=== PATIENT | male | born 1955 | race Caucasian/White ===

== ENCOUNTER 2020-02-22 16:18 | Observation (INO) | payer MEDICARE, SELFPAY ==
--- NOTE | ~2020-02-22 | XR_ITS ---
EXAMINATION: XR chest 1V portable DATE: 02/22/2020 17:33 INDICATION: Shortness of breath and posterior chest pain TECHNIQUE: frontal view of the chest was obtained. COMPARISON: None FINDINGS: The lungs are clear with no focal airspace opacities, pulmonary edema, pleural effusion or pneumothor ax. The cardiomediastinal silhouette is normal. Dual lead pacemaker seen with leads projecting over t he expected locations of the right atrium and right ventricle. Pair of stimulator leads extending cep halad into the lower thoracic spine with distal tips projecting over the central canal at the level o f T8. Partially visualized plate and screw fixation for lower cervical anterior spinal fusion. IMPRESSION: 1. No acute cardiopulmonary disease. Reviewed, dictated and finalized at location A. ECHNICIAN
--- NOTE | 2020-02-22 17:09 | ED.CHESTPAIN ---
HPI - Chest Pain General Chief Complaint: Chest Pain Stated Complaint: back pain, SOB, leg numbness Time Seen by Provider: 02/22/20 17:09 Source: patient and family Limitations: no limitations History of Present Illness HPI narrative: 64-year-old man with a history of coronary artery disease, COPD, and CHF comes to the emergency department complaining of left-sided chest pain that radiates down his left arm and to the back between his shoulder blades that started approximately 2 hours ago. The pain is improved but is not entirely resolved at present. Patient states that he had been walking outdoors and as he came in the chest pain started. States he had a similar episode a week ago which resolved after a few minutes. Episode today was accompanied by dry mouth, nausea, and lightheadedness. He denies shortness of breath, on with syncope, abdominal pain, vomiting, recent cough or cold symptoms, and fever. Patient has a history of chronic low back pain and he states his back pain has been worse the last few days and is radiating down his right leg. He denies falls or injuries. MD complaint: chest pain Pertinent past history: coronary artery disease Onset (ago): hour(s) (2) Timing of current episode: episodic Prior episodes: Yes Onset: during exertion Pain location: substernal Pain radiation: left arm and back Severity: moderate Quality: tightness and heaviness Relieving factors: rest Exacerbating factors: exertion Associated symptoms: nausea and diaphoresis Treatment prior to arrival: none Risk Factors Coronary artery disease risk factors: smoking history, hyperlipidemia and hypertension Related Data Allergies Allergy/AdvReac Type Severity Reaction Status Date / Time No Known Allergies Allergy Verified 02/22/20 18:12 Review of Systems Constitutional: Constitutional: Denies body ache(s) and Denies chills Comments: No fever Eyes: Eyes: Denies loss of vision and Denies other visual disturbances ENT: Reports dry mouth, Denies nasal congestion and Denies sore throat Cardiovascular: Cardiovascular: Reports as per HPI, Denies rapid heart rate and Denies leg edema Respiratory: Respiratory: Denies chest congestion, Denies cough, Denies hemoptysis, Denies dyspnea and Denies dyspnea on exertion Gastrointestinal: Gastrointestinal: Denies abdominal pain, Denies diarrhea, Reports nausea and Denies vomiting Genitourinary: Genitourinary: Reports dysuria and Reports urinary frequency Musculoskeletal: Musculoskeletal: Reports back pain ( chronic), Denies arthralgias and Denies joint swelling Integumentary/Breasts: Skin/Breast: Denies lesions, Denies erythema, Denies rash and Denies unusual bruising Neurologic: Denies vertigo, Denies dizziness, Denies syncope, Denies headache(s) and Denies focal weakness Psychiatric: Psychiatric: Denies anxiety and Denies depression Allergic/Immunologic: Allergic/Immunologic: Denies urticaria, Denies lip swelling and Denies throat swelling [facility] Past Medical History Medical History (Updated 02/22/20 @ 18:23 by Dwayne Gay MD) Congestive heart failure Coronary artery disease Dyslipidemia Hypertension Prostate cancer Surgical History Surgical History (Updated 02/22/20 @ 17:28 by Dwayne Gay MD) Previous back surgery S/P insertion of spinal cord stimulator Stented coronary artery Social History Social History (Updated 02/22/20 @ 17:28 by Dwayne Gay MD) Smoking status: Current every day smoker Tobacco type: cigars Alcohol intake: never Substance use: never Living arrangements: with family Gender identity (if verbalized by the patient): Male Exam Const: General: cooperative, alert, awake, Physically active and acute distress mild Nutritional Appearance: average body habitus Orientation/consciousness: patient oriented x3 Limitations: no limitations HENMT: Head: normal to inspection, normocephalic and atraumatic Ears: external ears normal, TM's
--- NOTE | 2020-02-22 17:14 | ECG_ITS ---
Measurements Intervals [place] Rate: 76 P: 74 ND: 166 QRS: -41 QRSD: 137 T: 17 QT: 377 QTc: 425 Interpretive Statements SINUS RHYTHM LEFT AXIS DEVIATION RSR' IN V1 OR V2, CONSIDER RIGHT VENTRICULAR HYPERTROPHY OR RIGHT VCD BASELINE ARTIFACT- II, III, V1 BORDERLINE ECG Electronically Signed On 02-23-2020 7:04:24 RADARMAN by Fortino Nicholas D.O.
[2020-02-22 17:15] VITALS: BP 143/93; PULSE 88; RESP 20; TEMP 36.7
[2020-02-22] MEDS: NITROGLYCERIN SL 0.4 MG TABLET SUBLINGUAL (17:25)
[2020-02-22 17:30] VITALS: BP 125/80; PULSE 86; RESP 20; O2SAT 93
[2020-02-22] MEDS: ASPIRIN 81 MG CHEWABLE TABLET 324 MG PO (17:30)
[2020-02-22 17:37] LABS: Basophils Absolute Auto 0.07 K/mm3 (0.00-0.10); Basophils Percent Auto 0.5 % (0.0-1.0); Eosinophils Absolute Auto 0.19 K/mm3 (0.02-0.50); Eosinophils Percent Auto 1.5 % (1.0-6.0); Hematocrit 46.2 % (37.0-46.0); Hemoglobin 15.4 g/dL (12.4-15.3); Immature Granulocyte Absolute 0.05 K/mm3 (0.00-0.00); Immature Granulocyte Percent A 0.4 % (0.0-0.0); Lymphocytes Absolute Auto 1.72 K/mm3 (1.10-4.50); Lymphocytes Percent Auto 13.4 % (18.0-42.0); Mean Corpuscular HGB Conc 33.3 g/dL (32.0-36.0); Mean Corpuscular Hemoglobin 30.7 pg (27.0-31.0); Mean Corpuscular Volume 92.2 fL (78.0-102.0); Mean Platelet Volume 8.9 fl (8.7-11.0); Monocytes Absolute Auto 1.09 K/mm3 (0.10-0.90); Monocytes Percent Auto 8.5 % (2.0-11.0); Neutrophils Absolute Auto 9.8 K/mm3 (1.7-7.2); Neutrophils Percent Auto 75.7 % (50.0-70.0); Platelet Count Result 277 K/mm3 (150-420); Red Blood Count 5.01 M/mm3 (4.70-6.10); Red Cell Distribution Width 12.2 % (11.6-14.4); White Blood Count 12.9 K/mm3 (4.8-10.8)
[2020-02-22] MEDS: MORPHINE SULFATE (*CRX) 2 MG/ML INJ IV PUSH (17:40)
[2020-02-22] MEDS: SODIUM CHLORIDE 0.9% IV 500 ML 999 ML IV CONT (17:45)
[2020-02-22 17:57] LABS: BNP < 5.0 pg/mL (0-100)
[2020-02-22 17:58] LABS: Alanine Aminotransferase 35 U/L (16-63); Alkaline Phosphatase 79 U/L (46-116); Anion Gap 8 mmol/L (8-16); Aspartate Amino Transferase 16 U/L (15-37); Bilirubin,Total 0.4 mg/dL (0.00-1.00); Blood Urea Nitrogen 12 mg/dL (7-18); Calcium 8.8 mg/dL (8.5-10.1); Carbon Dioxide 31 mmol/L (21-32); Chloride 101 mmol/L (98-108); D Dimer 0.19 mg/L (0.19-0.50); Estimated CRCL calculation 77 ml/min; Estimated Glomerular Filt Rate > 60; Glucose 101 mg/dL (70-99); Osmolality Calculated 289 mOsm/kg (285-295); Partial Thromboplastin Time 33.8 SEC (23.90-30.70); Potassium 4.4 mmol/L (3.5-5.1); Prothrombin Time 10.6 Seconds (9.50-12.10); Sodium 140 mmol/L (136-145); Total Protein 7.2 g/dL (6.4-8.2); Troponin I 4.5 ng/L (0.00-60.4)
[2020-02-22 18:00] VITALS: BP 81/61; PULSE 70; RESP 20; O2SAT 93
--- NOTE | 2020-02-22 18:02 | PC.NURSE ---
1725 NITRO#1 GIVEN CP 07/19 B/P 140/91 1730 NITRO #2 GIVEN CP 06/18 B/P 125/80 1735 NITRO #3 GIVEN CP 05/19 B/P 110/74 1745 B/P 90/40 NS 500 BOLUS GIVEN CP 02/18 BACK PAIN 06/18
[2020-02-22 18:45] VITALS: BP 105/69; PULSE 68; RESP 20; O2SAT 95
[2020-02-22 19:47] VITALS: BMI 25.2
[2020-02-22 20:00] VITALS: BP 117/69; PULSE 74; RESP 20; TEMP 36.9; O2SAT 96
[2020-02-22] MEDS: ATORVASTATIN 40 MG TABLET PO (20:19)
[2020-02-22] MEDS: SODIUM CHLORIDE 0.9% IV 1,000 ML 50 ML IV CONT (20:20)
[2020-02-22] MEDS: GABAPENTIN 300 MG CAPSULE PO (20:20)
[2020-02-22] MEDS: BUDESONIDE/FORMOTEROL (*SP) 160-4.5 MCG 6 GM INH 2 PUFF INHALATION (20:20)
[2020-02-22] MEDS: methocarbamoL 500 MG TABLET PO (20:20)
[2020-02-22 21:01] LABS: Troponin I 5.2 ng/L (0.00-60.4)
[2020-02-23] VITALS: BP 125/81; PULSE 76; RESP 20; TEMP 37.1; O2SAT 93
[2020-02-23 00:08] LABS: Troponin I 5.4 ng/L (0.00-60.4)
[2020-02-23 04:00] VITALS: BP 106/67; PULSE 67; RESP 18; TEMP 37; O2SAT 93
[2020-02-23 05:42] LABS: Basophils Absolute Auto 0.05 K/mm3 (0.00-0.10); Basophils Percent Auto 0.6 % (0.0-1.0); Eosinophils Absolute Auto 0.14 K/mm3 (0.02-0.50); Eosinophils Percent Auto 1.7 % (1.0-6.0); Hematocrit 42.1 % (37.0-46.0); Hemoglobin 13.7 g/dL (12.4-15.3); Immature Granulocyte Absolute 0.03 K/mm3 (0.00-0.00); Immature Granulocyte Percent A 0.4 % (0.0-0.0); Lymphocytes Absolute Auto 1.75 K/mm3 (1.10-4.50); Lymphocytes Percent Auto 20.8 % (18.0-42.0); Mean Corpuscular HGB Conc 32.5 g/dL (32.0-36.0); Mean Corpuscular Hemoglobin 30.6 pg (27.0-31.0); Mean Corpuscular Volume 94.2 fL (78.0-102.0); Mean Platelet Volume 9.1 fl (8.7-11.0); Monocytes Absolute Auto 0.75 K/mm3 (0.10-0.90); Monocytes Percent Auto 8.9 % (2.0-11.0); Neutrophils Absolute Auto 5.7 K/mm3 (1.7-7.2); Neutrophils Percent Auto 67.6 % (50.0-70.0); Platelet Count Result 244 K/mm3 (150-420); Red Blood Count 4.47 M/mm3 (4.70-6.10); Red Cell Distribution Width 12.4 % (11.6-14.4); White Blood Count 8.4 K/mm3 (4.8-10.8)
[2020-02-23 06:09] LABS: Alanine Aminotransferase 28 U/L (16-63); Albumin Level 3.3 g/dL (3.4-5.0); Alkaline Phosphatase 65 U/L (46-116); Anion Gap 7 mmol/L (8-16); Aspartate Amino Transferase 15 U/L (15-37); Bilirubin,Total 0.5 mg/dL (0.00-1.00); Blood Urea Nitrogen 9 mg/dL (7-18); Calcium 8.1 mg/dL (8.5-10.1); Carbon Dioxide 27 mmol/L (21-32); Chloride 107 mmol/L (98-108); Estimated CRCL calculation 95 ml/min; Estimated Glomerular Filt Rate > 60; Glucose 111 mg/dL (70-99); Osmolality Calculated 291 mOsm/kg (285-295); Potassium 4.1 mmol/L (3.5-5.1); Sodium 141 mmol/L (136-145); Troponin I 5.2 ng/L (0.00-60.4)
[2020-02-23 08:00] VITALS: BP 115/80; PULSE 78; RESP 20; TEMP 37.4; O2SAT 97
[2020-02-23 08:59] VITALS: PULSE 76
[2020-02-23] MEDS: BUDESONIDE/FORMOTEROL (*SP) 160-4.5 MCG 6 GM INH 2 PUFF INHALATION (08:59)
[2020-02-23] MEDS: METOPROLOL SUCCINATE EXT REL 50 MG TABCR PO (08:59)
[2020-02-23] MEDS: CLOPIDOGREL BISULFATE 75 MG TABLET PO (09:00)
[2020-02-23] MEDS: lisinopriL 20 MG TABLET PO (09:00)
[2020-02-23] MEDS: DABIGATRAN ETEXILATE 150 MG CAPSULE PO (09:00)
[2020-02-23] MEDS: THERAPEUTIC MULTIVITAMINS/MINERALS TAB (*BKC) 1 TABLET PO (09:00)
[2020-02-23] MEDS: LIDOCAINE 5% PATCH 1 PATCH TOPICAL (09:00)
[2020-02-23] MEDS: methocarbamoL 500 MG TABLET PO (09:43)
--- NOTE | 2020-02-23 10:19 | PM.SD ---
Same Day Admit/Disch: HPI History of Present Illness Chief complaint: CHEST PAIN Narrative: Emiliano Obrien is a 64 year old male that presented to our ED with complaints of chest pain. Patient has a past medical history of, congestive heart failure, CAD, dyslipidemia, hypertension, prostate cancer. According to patient yesterday he was walking in the chair with his grandson and started experiencing left chest pain that to his left shoulder and upper arm and down the back of his neck patient noted that the pain worsened that is when to our ED. He also noted that he felt lightheaded during this episode. Patient does see a relationship counselor in a pain management provider at the [facility]. Patient notes that his pain medication had recently been changed notes that when he takes buprenorphine he becomes a little lightheaded and thinks this could be the possible cause of his lightheadedness. Patient's troponin has been negative x3 EKG sinus rhythm with a heart rate of 76. Patient notes that when he took nitro in the ED his chest pain resolved. Today the patient denies SOB, CP, palpitation, extremity numbness, lightheadedness, dizziness, constipation, diarrhea, chills, or fever. Patient will discharge home with nitro and follow-up with his primary care physician and relationship counselor [facility] Past Medical History Medical History (Updated 02/22/20 @ 18:23 by Dwayne Gay MD) Congestive heart failure Coronary artery disease Dyslipidemia Hypertension Prostate cancer Surgical History Surgical History (Updated 02/22/20 @ 17:28 by Dwayne Gay MD) Previous back surgery S/P insertion of spinal cord stimulator Stented coronary artery Social History Social History (Updated 02/22/20 @ 17:28 by Dwayne Gay MD) Years smoked: 46 Smoking status: Current every day smoker Tobacco type: cigars Second hand tobacco smoke exposure: Yes Alcohol intake: never Substance use: never Living arrangements: with family Gender identity (if verbalized by the patient): Male Spiritual care concerns: No Same Day Admit/Disch: Med Pre-admit Medications Home Medications Medication Instructions Recorded Confirmed Type acetaminophen 1,000 mg PO BID PRN 02/22/20 02/22/20 History atorvastatin 40 mg PO HS 02/22/20 02/22/20 History budesonide-formoterol 2 puff INHALATION Q12H 02/22/20 02/22/20 History buprenorphine 1 patch TRANSDERMAL WEEKLY 02/22/20 02/22/20 History buprenorphine HCl 75 mcg BUCCAL Q12H 02/22/20 02/22/20 History clopidogrel 75 mg PO DAILY 02/22/20 02/22/20 History dabigatran etexilate 150 mg PO BID 02/22/20 02/22/20 History diclofenac sodium 2 g TOPICAL QID 02/22/20 02/22/20 History gabapentin 300 mg PO HS 02/22/20 02/22/20 History lidocaine 1 patch TOPICAL DAILY 02/22/20 02/22/20 History lisinopril 20 mg PO DAILY 02/22/20 02/22/20 History methocarbamol 500 mg PO QID 02/22/20 02/22/20 History metoprolol succinate 50 mg PO DAILY 02/22/20 02/22/20 History multivitamin with iron 1 tablet PO DAILY 02/22/20 02/22/20 History naloxone 4 mg INTRANASAL Q2M 02/22/20 02/22/20 History Exam Narrative: Exam Narrative: GENERAL: This is a well-nourished, well-developed patient, in no apparent distress. HEAD: normocephalic, atraumatic. EYES: PERRL. Sclera clear/white. Vision is grossly intact. EARS: External ears normal, auditory canals clear and without drainage, TMs normal without perforation. Hearing grossly intact. NOSE: External nose normal with no obvious nasal discharge, nares without redness, no rhinorrhea. THROAT: Mucous membranes moist, posterior pharynx clear. NECK: Neck supple, non-tender without lymphadenopathy, masses or thyromegaly. CARDIOVASCULAR: Regular rate and rhythm without murmurs, gallops, or rubs. RESPIRATORY: Clear to auscultation. Breath sounds equal bilaterally. No wheezes, rales, or rhonchi. GASTROINTESTINAL: Abdomen soft, non-tender, nondistended. Bowel sounds are active. No hepato-splen
--- NOTE | 2020-02-27 13:51 | PC.NURSE ---
Pt states he received and understood his discharge instructions. Pt also states everything was good .
== END 2020-02-23 11:30 | disposition home or self-care (01) ==
LOC: CHSED 18:23 → CHS2ND 18:47
PROVIDERS: Admitting Provider Emergency Medicine; Emergency Provider Emergency Medicine; PCP Family Medicine; Visit Provider Emergency Medicine
DX: R07.9 Chest pain, unspecified (principal); I11.0 Hypertensive heart disease with heart failure; I50.9 Heart failure, unspecified; I25.10 Atherosclerotic heart disease of native coronary artery without angina pectoris; J44.9 Chronic obstructive pulmonary disease, unspecified; C61 Malignant neoplasm of prostate; E78.5 Hyperlipidemia, unspecified; R42 Dizziness and giddiness; M54.5 Low back pain; G89.29 Other chronic pain; F17.290 Nicotine dependence, other tobacco product, uncomplicated
CPT/HCPCS: 36415; 71045; 80053; 83880; 84484; 85025; 85380; 85610; 85730; 93005; 96361; 96374; 99285; A9270; G0378; J2270; J7030; J7040